=== PATIENT | male | born 1925 | race Caucasian/White ===

== ENCOUNTER → 2016-04-20 | Outpatient (CLI) | payer MEDICARE, OTHER ==
--- NOTE | 2016-04-20 14:13 | MRI ---
Study: MRI of the Right Shoulder. Indication: SHOULDER PAIN Technique: Multiplanar, multi sequence MRI of the right shoulder was obtained without intravenous contrast. Comparison: None. Findings: Moderate to severe AC joint osteoarthritis with ganglionic like distention of the joint space along its superior medial margin. It communicates with the subacromial/subdeltoid bursa. Type I acromion without downsloping. Retracted full thickness, full width supraspinatus and infraspinatus tendon tearing with the torn tendon fibers at the level of the glenoid. High grade articular sided tearing superior half subscapularis tendon. Teres minor tendon intact. Mild intramuscular edema supraspinatus muscle belly without atrophy or fatty infiltration. Long head biceps tendon is torn and distally retracted. Circumferential labral degeneration. Mild to moderate glenohumeral joint osteoarthritis with a small joint effusion. No acute fracture. Fluid distention superior subscapular recess with internal loose bodies and debris. Impression: Retracted full-thickness, full width supraspinatus and infraspinatus tendon tearing. High-grade articular tearing superior half subscapularis tendon insertion. Torn and distally retracted long head biceps tendon. Circumferential labral degeneration. Mild to moderate glenohumeral joint osteoarthritis. Moderate to severe AC joint osteoarthritis. Electronically signed by: Dejon Carlton MD 04/20/2016 2:12 PM CDT
== END | disposition home or self-care (01) ==
LOC: MRI 13:00
PROVIDERS: ATTEND Nurse Practitioner Acute Care
DX: M75.111 Incomplete rotator cuff tear or rupture of right shoulder, not specified as traumatic (principal)